=== PATIENT | female | born 1955 | race Asian ===

== ENCOUNTER 2017-08-15 08:22 | Day surgery (SDC) | payer OTHER ==
[2017-08-15] VITALS (7 sets, daily range): BP systolic 93–168; BP diastolic 60–99; PULSE 57–74; TEMP 97.6–97.7
[~2017-08-15] VITALS: Ht 157.5 cm; Wt 69.6 kg
[~2017-08-15 08:22] MED LIST: AFLEXA340 MG; ALLEGRA 180MG180 MG PO; CALCIUM + D 5001 TAB PO; CALCIUM 500 + D1 TA1 PO; EPA/GLA1 SGL PO; FLAXSEED OIL1 CAP; GLUCOSAMINE & C1 CA1 PO; MAG-OX 400400 MG/TAB PO; MICARDIS HCT 121 TAB PO; MICARDIS40 MG PO
[2017-08-15] MEDS ORDERED: SYNTHROID0.05 MG/TA PO (08:55)
[2017-08-15] MEDS ORDERED: MICARDIS HCT 121 TA1 PO (08:56)
[2017-08-15] MEDS ORDERED: ALLEGRA 180MG180 MG PO (08:58)
== END 2017-08-15 11:10 | disposition home or self-care (01) ==
LOC: SDCO 08:22
DX: Z12.11 Encounter for screening for malignant neoplasm of colon (principal); Z86.010 Personal history of colon polyps; K57.30 Diverticulosis of large intestine without perforation or abscess without bleeding; I10 Essential (primary) hypertension
CPT/HCPCS: J1940; J2250; J2405; J3010; J7030